=== PATIENT | male | born 1945 | race Caucasian/White ===

== ENCOUNTER → 2020-07-09 | Outpatient (CLI) | payer OTHER | END | disposition home or self-care (01) | LOC: COVID19 12:27 | PROVIDERS: ATTEND Family Medicine | DX: Z20.828 Contact with and (suspected) exposure to other viral communicable diseases (principal) ==

== ENCOUNTER → 2021-09-23 | Outpatient (CLI) | payer OTHER | END | disposition home or self-care (01) | LOC: RESCLI 01:18 | PROVIDERS: ATTEND Internal Medicine Nephrology | DX: I10 Essential (primary) hypertension (principal); F03.90 Unspecified dementia, unspecified severity, without behavioral disturbance, psychotic disturbance, mood disturbance, and anxiety; E78.5 Hyperlipidemia, unspecified; N40.0 Benign prostatic hyperplasia without lower urinary tract symptoms; G89.29 Other chronic pain; Z79.899 Other long term (current) drug therapy; Z87.891 Personal history of nicotine dependence; Z98.890 Other specified postprocedural states ==

== ENCOUNTER → 2022-09-11 | Outpatient (CLI) | payer OTHER | END | disposition home or self-care (01) | LOC: RESCLI 01:40 | PROVIDERS: ATTEND Internal Medicine | DX: N40.0 Benign prostatic hyperplasia without lower urinary tract symptoms (principal); F03.90 Unspecified dementia, unspecified severity, without behavioral disturbance, psychotic disturbance, mood disturbance, and anxiety; E78.5 Hyperlipidemia, unspecified; I10 Essential (primary) hypertension; G89.29 Other chronic pain; Z72.89 Other problems related to lifestyle; Z98.890 Other specified postprocedural states; Z79.899 Other long term (current) drug therapy ==

== ENCOUNTER 2022-12-22 17:33 | Emergency (ER) | payer OTHER ==
[~2022-12-22] VITALS: Ht 175.2 cm; Wt 72.6 kg
[2022-12-22] MEDS ORDERED: PRAVASTATIN SOD40 MG PO (18:02)
[2022-12-22] MEDS ORDERED: LISINOPRIL40 MG PO (18:03)
[2022-12-22] MEDS ORDERED: DILTIAZEM 24HR300 MG PO (18:06)
[2022-12-22] MEDS ORDERED: ARICEPT10 M1 PO (18:18)
== END 2022-12-22 20:51 | disposition home or self-care (01) ==
LOC: ED 17:33
DX: S66.912A Strain of unspecified muscle, fascia and tendon at wrist and hand level, left hand, initial encounter (principal); S76.012A Strain of muscle, fascia and tendon of left hip, initial encounter; S86.912A Strain of unspecified muscle(s) and tendon(s) at lower leg level, left leg, initial encounter; S05.12XA Contusion of eyeball and orbital tissues, left eye, initial encounter; S09.90XA Unspecified injury of head, initial encounter; I10 Essential (primary) hypertension; E78.00 Pure hypercholesterolemia, unspecified; W01.198A Fall on same level from slipping, tripping and stumbling with subsequent striking against other object, initial encounter; Y93.89 Activity, other specified; Y92.89 Other specified places as the place of occurrence of the external cause; Y99.8 Other external cause status

== ENCOUNTER → 2023-02-19 | Day surgery (SDC) | payer OTHER ==
[2023-02-16 13:45] LABS: BUN 42 mg/dl (9-23); CHLORIDE 104 mmol/L (98-107); POTASSIUM 4.1 mmol/L (3.4-5.1)
[~2023-02-19] VITALS: Ht 175.3 cm; Wt 73.0 kg
[~2023-02-19] MED LIST: ARICEPT10 M1 PO; ASPIRIN CHILDRE81 MG PO; DILTIAZEM 24HR300 MG PO; FISH OIL 1,0001 EAC1 PO; GINKGO60 MG PO; LISINOPRIL40 MG PO; PRAVASTATIN SOD40 MG PO; TERAZOSIN5 MG PO; TRAMADOL HCL50 MG PO; VITAMIN C500 M1 PO; ZINC50 M4 PO
[2023-02-19 07:55] VITALS: BP 102/51
[2023-02-19 08:01] VITALS: BP 101/42
[2023-02-19 08:16] VITALS: BP 107/52
[2023-02-19 08:31] VITALS: BP 109/52
== END ==
LOC: SDC 02-17 08:00
PROVIDERS: ATTEND Orthopaedic Surgery
DX: G56.02 Carpal tunnel syndrome, left upper limb (principal); F03.90 Unspecified dementia, unspecified severity, without behavioral disturbance, psychotic disturbance, mood disturbance, and anxiety; G20 Parkinson's disease; I10 Essential (primary) hypertension; Z79.899 Other long term (current) drug therapy

== ENCOUNTER → 2023-06-24 | Outpatient (CLI) | payer OTHER ==
[~2023-06-24] MED LIST changes: +FISH OIL 1,0001 EAC3 PO; +GINKGO BILOBA120 M2 PO; +MULTIVITAMIN1 EACH PO; +VITAMIN C1000 M5 PO; +VITAMIN D3125 MCG PO; +ZESTORETIC 20-1 EACH PO; +[UNRECOGNIZED DRUG - OTHER]
[2023-06-24 13:24] LABS: BASO # 0.1 10*3/uL (0.0-0.1); BASO % 1.1 % (0.0-1.0); EOS # 0.2 10*3/uL (0.0-0.4); HEMATOCRIT 40.5 % (42.0-52.0); LYMPH # 1.4 10*3/uL (1.3-4.4); LYMPH % 16.9 % (27.0-41.0); MEAN CELL VOLUME 92.9 fl (80.0-94.0); MEAN CORPUSCULAR HGB 31.7 pg (27.0-31.0); MEAN CORPUSCULAR HGB CONC 34.1 g/dl (33.0-37.0); MEAN PLATELET VOLUME 8.8 fl (9.6-12.3); MONO # 0.6 10*3/uL (0.1-1.0); MONO % 7.6 % (3.0-9.0); NEUT # 5.9 10*3/uL (2.3-7.9); NEUT % 72.2 % (47.0-73.0); PLATELET COUNT AUTOMATED 272 10*3/uL (130-400); RED BLOOD COUNT 4.36 10*6/uL (4.50-5.90); RED CELL DISTRI WIDTH 12.7 % (0-14.5); WHITE BLOOD COUNT 8.2 10*3/uL (4.8-10.8)
[2023-06-24 13:46] LABS: ALKALINE PHOSPHATASE 80 U/L (46-116); BUN 20 mg/dl (9-23); CHLORIDE 105 mmol/L (98-107); POTASSIUM 4.3 mmol/L (3.4-5.1); SGPT/ALT 22 U/L (5-49)
== END | disposition home or self-care (01) ==
LOC: LAB 13:04
PROVIDERS: ATTEND Internal Medicine
DX: I44.0 Atrioventricular block, first degree (principal); E83.52 Hypercalcemia; E87.1 Hypo-osmolality and hyponatremia; T50.901A Poisoning by unspecified drugs, medicaments and biological substances, accidental (unintentional), initial encounter; X58.XXXA Exposure to other specified factors, initial encounter

== ENCOUNTER → 2024-02-16 | Outpatient (CLI) | payer MEDICARE | END | disposition home or self-care (01) | LOC: MRI 01:47 | PROVIDERS: ATTEND Psychiatry & Neurology Clinical Neurophysiology | DX: G93.89 Other specified disorders of brain (principal); G30.9 Alzheimer's disease, unspecified; K08.89 Other specified disorders of teeth and supporting structures; R41.0 Disorientation, unspecified ==

== ENCOUNTER → 2024-02-24 | Outpatient (CLI) | payer MEDICARE | END | disposition home or self-care (01) | LOC: LAB 12:40 | PROVIDERS: ATTEND Psychiatry & Neurology Clinical Neurophysiology | DX: G30.9 Alzheimer's disease, unspecified (principal) ==

== ENCOUNTER → 2025-01-10 | Outpatient (CLI) | payer MEDICARE ==
[2025-01-10 13:28] LABS: BASO # 0.1 10*3/uL (0.0-0.1); BASO % 0.7 % (0.0-1.0); EOS # 0.3 10*3/uL (0.0-0.4); EOS % 3.6 % (1.0-4.0); HEMATOCRIT 39.6 % (42.0-52.0); MEAN CELL VOLUME 90.2 fl (80.0-94.0); MEAN CORPUSCULAR HGB 29.6 pg (27.0-31.0); MEAN CORPUSCULAR HGB CONC 32.8 g/dl (33.0-37.0); MEAN PLATELET VOLUME 9.3 fl (9.6-12.3); MONO % 10.9 % (3.0-9.0); NEUT # 6.9 10*3/uL (2.3-7.9); NEUT % 73.5 % (47.0-73.0); PLATELET COUNT AUTOMATED 281 10*3/uL (130-400); RED BLOOD COUNT 4.39 10*6/uL (4.50-5.90); RED CELL DISTRI WIDTH 14.1 % (0-14.5); WHITE BLOOD COUNT 9.4 10*3/uL (4.8-10.8)
[2025-01-10 14:12] LABS: ALKALINE PHOSPHATASE 100 U/L (46-116); BUN 26 mg/dl (9-23); CHLORIDE 102 mmol/L (98-107); POTASSIUM 4.2 mmol/L (3.4-5.1); SGPT/ALT 15 U/L (5-49); TOTAL PROTEIN 6.9 gm/dL (6.0-8.0)
== END | disposition home or self-care (01) ==
LOC: CT 10:00 → LAB 12:45 → CT 13:00
PROVIDERS: ATTEND Urology
DX: K80.20 Calculus of gallbladder without cholecystitis without obstruction (principal); N40.0 Benign prostatic hyperplasia without lower urinary tract symptoms; R35.0 Frequency of micturition; R53.83 Other fatigue; M47.817 Spondylosis without myelopathy or radiculopathy, lumbosacral region

== ENCOUNTER 2025-03-31 11:18 | Inpatient (IN) | payer MEDICARE ==
[~2025-03-31] VITALS: Ht 183 cm; Wt 82.8 kg
[2025-03-31 11:31] VITALS: BP 110/66
[2025-03-31 12:16] LABS: BASO # 0.0 10*3/uL (0.0-0.1); BASO % 0.4 % (0.0-1.0); EOS # 0.3 10*3/uL (0.0-0.4); EOS % 2.5 % (1.0-4.0); MEAN CELL VOLUME 90.0 fl (80.0-94.0); MEAN CORPUSCULAR HGB 28.7 pg (27.0-31.0); MEAN PLATELET VOLUME 8.6 fl (9.6-12.3); MONO # 1.3 10*3/uL (0.1-1.0); MONO % 12.0 % (3.0-9.0); NEUT # 7.7 10*3/uL (2.3-7.9); NEUT % 72.4 % (47.0-73.0); NUCLEATED RED BLOOD CELL 0.0 % (0.0-0.0); NUCLEATED RED BLOOD CELL 0.0 10*3/uL (0.0-0.0); PLATELET COUNT AUTOMATED 329 10*3/uL (130-400); RED CELL DISTRI WIDTH 14.3 % (0-14.5)
[2025-03-31 12:36] LABS: BILIRUBIN Negative (Negative); BLOOD 1+ (Negative); CLARITY Clear (Clear); COLOR Yellow (Yellow); KETONE Negative (Negative); LEUKO ESTERASE Trace (Negative); NITRITE Negative (Negative); PH 7.5 (4.5-8.0); SPECIFIC GRAVITY 1.015 (1.001-1.030); UROBILINOGEN 1.0 E.U./dl (0.0-1.0)
[2025-03-31 12:43] LABS: URINE AMPHETAMINES Negative (1000ng/ml); URINE BARBITURATES Negative (200ng/ml); URINE BENZODIAZEPINES Negative (200ng/ml); URINE CANNABINOIDS (THC) Negative (50ng/ml); URINE COCAINE Negative (300ng/ml); URINE METHADONE Negative (300ng/ml); URINE OPIATES Negative (300ng/ml); URINE PHENCYCLIDINE Negative (25ng/ml)
[2025-03-31 12:44] LABS: BUN 23 mg/dl (9-23)
[2025-03-31 12:57] LABS: BACTERIA 1+; EPITHELIAL CELLS 16-20; RBC 31-40 rbc/hpf (0-2); WBC 16-20 wbc/hpf (0-5)
[2025-03-31] MEDS ORDERED: Water, Sterile 10 ML VIAL ONE (14:10)
[2025-03-31] MEDS ORDERED: LORazepam 1 MG TAB PO PRN (18:10)
[2025-03-31] MEDS ORDERED: Water, Sterile 10 ML VIAL IM PRN (18:15)
[2025-03-31] MEDS ORDERED: hydrOXYzine hydrochloride 50 MG/ML VIAL IM PRN (18:15)
[2025-03-31] MEDS ORDERED: SEROQUEL50 MG PO (18:50)
[2025-03-31] MEDS ORDERED: NAMENDA-5 PO (18:51)
[2025-03-31] MEDS ORDERED: FLUVOXAMINE50 MG PO (18:52)
[2025-03-31] MEDS ORDERED: ATIVAN0.5 MG PO (18:53)
[2025-03-31] MEDS ORDERED: ZESTRIL20 MG PO (18:54)
[2025-03-31] MEDS ORDERED: PROSCAR5 M1 PO (18:56)
[2025-03-31] MEDS ORDERED: DEPAKOTE SPRIN125 MG PO (18:56)
[2025-03-31] MEDS ORDERED: CARTIA XT300 MG PO (18:57)
[2025-03-31 20:00] VITALS: BP 117/90
[2025-03-31] MEDS ORDERED: MG-AL HYDROXIDE/SIMETICONE 30 ML UDC PO PRN (20:50)
[2025-03-31] MEDS ORDERED: ACETAMINOPHEN 325 MG TAB PO PRN (20:50)
[2025-03-31] MEDS ORDERED: Menthol/Zinc Oxide 4 GM THIN T PRN (20:55)
[2025-03-31] MEDS ORDERED: Memantine Hydrochloride 5 MG TAB PO SCH (21:00)
[2025-03-31] MEDS ORDERED: ARIPiprazole 5 MG TAB PO SCH (21:00)
[2025-04-01 06:25] LABS: MEAN CELL VOLUME 91.0 fl (80.0-94.0); MEAN CORPUSCULAR HGB 28.2 pg (27.0-31.0); MEAN PLATELET VOLUME 9.1 fl (9.6-12.3); NUCLEATED RED BLOOD CELL 0.0 % (0.0-0.0); NUCLEATED RED BLOOD CELL 0.0 10*3/uL (0.0-0.0); PLATELET COUNT AUTOMATED 367 10*3/uL (130-400); RED CELL DISTRI WIDTH 14.2 % (0-14.5)
[2025-04-01 06:35] LABS: MANUAL DIFF REFLEX YES
[2025-04-01 07:03] LABS: BUN 18 mg/dl (9-23); LDL CHOLESTEROL 68 mg/dL (9-159); SGPT/ALT 12 U/L (5-49); VALPROIC ACID (DEPAKENE) 17.3 ug/ml (50-100)
[2025-04-01 07:21] LABS: PLATELET SUFFICIENCY NORMAL (NORMAL)
[2025-04-01] MEDS ORDERED: DIVALPROEX SODIUM 125 MG CAP PO SCH (08:00)
[2025-04-01 08:13] LABS: VITAMIN D, 25-HYDROXY 60.7 ng/mL (30-100)
[2025-04-01] MEDS ORDERED: Cholecalciferol 5,000 IU CAP (125 MCG) PO SCH (09:00)
[2025-04-01] MEDS ORDERED: FINASTERIDE 5 MG TAB PO SCH (09:00)
[2025-04-01] MEDS ORDERED: ATORVASTATIN CALCIUM 10 MG TAB PO SCH (09:00)
[2025-04-01] MEDS ORDERED: LISINOPRIL 20 MG TAB PO SCH (09:00)
[2025-04-01] MEDS ORDERED: Rivastigmine Tartrate 4.6 MG/24 HR PATCH T SCH (09:00)
[2025-04-01 14:00] VITALS: BP 115/64
[2025-04-01] MEDS ORDERED: LEPTOSPERMUM HONEY 0.5 OZ TUBE T ONE (14:52)
[2025-04-01] MEDS ORDERED: Amoxicillin/Clavulanate Pota 875 MG TAB PO SCH (21:00)
[2025-04-01 23:24] VITALS: BP 129/100
[2025-04-02] MEDS ORDERED: Ondansetron Hydrochloride 4 MG TAB SL ONE (02:05)
[2025-04-02 03:01] LABS: BASO # 0.1 10*3/uL (0.0-0.1); BASO % 0.4 % (0.0-1.0); EOS # 0.0 10*3/uL (0.0-0.4); EOS % 0.0 % (1.0-4.0); MEAN CELL VOLUME 89.8 fl (80.0-94.0); MEAN CORPUSCULAR HGB 28.2 pg (27.0-31.0); MEAN PLATELET VOLUME 8.9 fl (9.6-12.3); MONO # 1.1 10*3/uL (0.1-1.0); MONO % 9.1 % (3.0-9.0); NEUT # 10.4 10*3/uL (2.3-7.9); NEUT % 84.2 % (47.0-73.0); NUCLEATED RED BLOOD CELL 0.0 % (0.0-0.0); NUCLEATED RED BLOOD CELL 0.0 10*3/uL (0.0-0.0); PLATELET COUNT AUTOMATED 380 10*3/uL (130-400); RED CELL DISTRI WIDTH 14.3 % (0-14.5)
[2025-04-02 03:22] LABS: SGPT/ALT 14 U/L (5-49)
[2025-04-02 03:23] LABS: BUN 29 mg/dl (9-23)
[2025-04-02] MEDS ORDERED: SUCRALFATE 1 GM TAB PO SCH (07:30)
[2025-04-02 09:00] VITALS: BP 73/44
[2025-04-02 10:03] VITALS: BP 130/70
[2025-04-02 20:00] VITALS: BP 108/63
[2025-04-03 08:34] VITALS: BP 120/71
[2025-04-03 12:27] LABS: BASO # 0.1 10*3/uL (0.0-0.1); BASO % 1.0 % (0.0-1.0); EOS # 0.2 10*3/uL (0.0-0.4); EOS % 2.5 % (1.0-4.0); MEAN CELL VOLUME 89.5 fl (80.0-94.0); MEAN CORPUSCULAR HGB 28.4 pg (27.0-31.0); MEAN PLATELET VOLUME 9.1 fl (9.6-12.3); MONO # 1.2 10*3/uL (0.1-1.0); MONO % 12.6 % (3.0-9.0); NEUT # 6.1 10*3/uL (2.3-7.9); NEUT % 66.3 % (47.0-73.0); NUCLEATED RED BLOOD CELL 0.0 % (0.0-0.0); NUCLEATED RED BLOOD CELL 0.0 10*3/uL (0.0-0.0); PLATELET COUNT AUTOMATED 358 10*3/uL (130-400); RED CELL DISTRI WIDTH 14.5 % (0-14.5)
[2025-04-03 12:47] LABS: BUN 32 mg/dl (9-23)
[2025-04-03 20:00] VITALS: BP 101/52
[2025-04-04 07:02] LABS: BASO # 0.1 10*3/uL (0.0-0.1); BASO % 0.9 % (0.0-1.0); EOS # 0.4 10*3/uL (0.0-0.4); EOS % 3.2 % (1.0-4.0); MEAN CELL VOLUME 89.6 fl (80.0-94.0); MEAN CORPUSCULAR HGB 28.4 pg (27.0-31.0); MEAN PLATELET VOLUME 8.8 fl (9.6-12.3); MONO # 1.3 10*3/uL (0.1-1.0); MONO % 11.5 % (3.0-9.0); NEUT # 8.0 10*3/uL (2.3-7.9); NEUT % 70.8 % (47.0-73.0); NUCLEATED RED BLOOD CELL 0.0 % (0.0-0.0); NUCLEATED RED BLOOD CELL 0.0 10*3/uL (0.0-0.0); PLATELET COUNT AUTOMATED 360 10*3/uL (130-400); RED CELL DISTRI WIDTH 14.3 % (0-14.5)
[2025-04-04 07:33] LABS: BUN 29 mg/dl (9-23)
[2025-04-04 08:00] VITALS: BP 124/71
[2025-04-04] MEDS ORDERED: Rivastigmine Tartrate 9.5 MG/24 HR PATCH T SCH (09:00)
[2025-04-04] MEDS ORDERED: ACETYLCYSTEINE 800 MG/4 ML VIAL PO SCH (10:21)
[2025-04-04 20:00] VITALS: BP 102/66
[2025-04-04] MEDS ORDERED: Amoxicillin/Clavulanate Pota 400 MG/5 ML 75 ML BOT PO SCH (21:00)
[2025-04-05 08:48] VITALS: BP 145/80
[2025-04-06 08:40] VITALS: BP 137/73
[2025-04-06] MEDS ORDERED: FOAM BANDAGE 1 EACH BANDAGE T ONE (14:42)
[2025-04-06] MEDS ORDERED: ALGINATE DRESSING/CME-CELL 4X4 1 EACH BANDAGE T ONE (15:36)
[2025-04-06] MEDS ORDERED: LEPTOSPERMUM HONEY 4 X 5 INCH WOUND DRESSING T ONE (15:36)
[2025-04-06 20:00] VITALS: BP 107/60
[2025-04-06] MEDS ORDERED: ARIPiprazole 5 MG TAB PO SCH (21:00)
[2025-04-07 06:10] VITALS: BP 122/67
[2025-04-07 07:55] LABS: BASO # 0.1 10*3/uL (0.0-0.1); BASO % 0.7 % (0.0-1.0); EOS # 0.2 10*3/uL (0.0-0.4); EOS % 2.4 % (1.0-4.0); MEAN CELL VOLUME 89.2 fl (80.0-94.0); MEAN CORPUSCULAR HGB 28.5 pg (27.0-31.0); MEAN PLATELET VOLUME 9.0 fl (9.6-12.3); MONO # 1.0 10*3/uL (0.1-1.0); MONO % 10.4 % (3.0-9.0); NEUT # 6.9 10*3/uL (2.3-7.9); NEUT % 73.1 % (47.0-73.0); NUCLEATED RED BLOOD CELL 0.0 % (0.0-0.0); NUCLEATED RED BLOOD CELL 0.0 10*3/uL (0.0-0.0); PLATELET COUNT AUTOMATED 388 10*3/uL (130-400); RED CELL DISTRI WIDTH 14.3 % (0-14.5)
[2025-04-07 08:27] LABS: BUN 25 mg/dl (9-23); SGPT/ALT 14 U/L (5-49)
[2025-04-07] MEDS ORDERED: RIVASTIGMINE 13.3 MG/24 HR TDM T SCH (09:00)
[2025-04-07] MEDS ORDERED: LEPTOSPERMUM HONEY 0.5 OZ TUBE T ONE (18:36)
[2025-04-07 20:00] VITALS: BP 117/92
[2025-04-08 05:57] VITALS: BP 131/91
[2025-04-08] MEDS ORDERED: LORazepam 1 MG TAB PO PRN (06:20)
[2025-04-08 20:00] VITALS: BP 108/76
[2025-04-09 08:00] VITALS: BP 110/70
[2025-04-09 20:00] VITALS: BP 101/68
[2025-04-10 08:18] VITALS: BP 100/52; BP 100/56
[2025-04-10 20:00] VITALS: BP 119/86
[2025-04-11 06:14] VITALS: BP 123/54
[2025-04-11 20:00] VITALS: BP 116/64
[2025-04-12 06:13] VITALS: BP 101/58
[2025-04-12] MEDS ORDERED: CLONAZEPAM1 MG PO (11:07)
[2025-04-12] MEDS ORDERED: MEMANTINE HCL10 MG PO (11:07)
[2025-04-12] MEDS ORDERED: ABILIFY20 MG PO (11:07)
[2025-04-12] MEDS ORDERED: RIVASTIGMINE1 EAC2 T (11:07)
[2025-04-12] MEDS ORDERED: FLUVOXAMINE50 MG PO (11:07)
[2025-04-12] MEDS ORDERED: CLONAZEPAM0.5 M2 PO (11:07)
[2025-04-12] MEDS ORDERED: MUCOMYST 20% PO (11:08)
== END 2025-04-12 13:26 | DRG 57 ==
LOC: ED 11:18 → EDHOLD 13:25 → 3N 13:25
PROVIDERS: Counselor Professional; Emergency Medicine; Internal Medicine; Student in an Organized Health Care Education/Training Program; ADMIT Psychiatry & Neurology Psychiatry; ATTEND Psychiatry & Neurology Psychiatry
DX: G30.9 Alzheimer's disease, unspecified (principal); F02.818 Dementia in other diseases classified elsewhere, unspecified severity, with other behavioral disturbance; E87.1 Hypo-osmolality and hyponatremia; E44.0 Moderate protein-calorie malnutrition; F33.3 Major depressive disorder, recurrent, severe with psychotic symptoms; F63.81 Intermittent explosive disorder; S61.250A Open bite of right index finger without damage to nail, initial encounter; F42.9 Obsessive-compulsive disorder, unspecified; N40.0 Benign prostatic hyperplasia without lower urinary tract symptoms; E78.5 Hyperlipidemia, unspecified; I10 Essential (primary) hypertension; D50.8 Other iron deficiency anemias; R45.88 Nonsuicidal self-harm; E78.2 Mixed hyperlipidemia; W50.3XXA Accidental bite by another person, initial encounter; R73.9 Hyperglycemia, unspecified; M19.041 Primary osteoarthritis, right hand; G56.03 Carpal tunnel syndrome, bilateral upper limbs; Z68.23 Body mass index [BMI] 23.0-23.9, adult; Z80.1 Family history of malignant neoplasm of trachea, bronchus and lung; Z81.8 Family history of other mental and behavioral disorders; Z80.0 Family history of malignant neoplasm of digestive organs; Z72.89 Other problems related to lifestyle; Y93.89 Activity, other specified; Y92.89 Other specified places as the place of occurrence of the external cause; Y99.8 Other external cause status